=== PATIENT | female | born 1965 | race Caucasian/White ===

== ENCOUNTER 2025-01-26 09:23 | Emergency (ER) | payer BC, OTHER ==
[2025-01-26] MEDS ORDERED: Lidocaine 1%/Epinephrine 1:100K 10 ML VIAL ONE (09:57)
== END 2025-01-26 11:05 | disposition home or self-care (01) ==
LOC: MADERS 09:23
DX: S01.81XA Laceration without foreign body of other part of head, initial encounter (principal); W01.198A Fall on same level from slipping, tripping and stumbling with subsequent striking against other object, initial encounter; Z23 Encounter for immunization
CPT/HCPCS: 12013; 90471; 90715